=== PATIENT | male | born 1945 | race Caucasian/White ===

== ENCOUNTER → 2017-02-06 | Outpatient (CLI) | payer MEDICARE, OTHER ==
[2017-02-06 09:34] LABS: INR 1.5 (<1.2); Prothrombin Time 14.6 sec (9.0-12.0)
[2017-02-06 09:55] LABS: Total Bilirubin 11.3 mg/dL (0.2-1.3); Total Protein 7.6 g/dL (6.3-8.2)
== END | disposition home or self-care (01) ==
LOC: LABWHC1 08:49
DX: K75.9 Inflammatory liver disease, unspecified (principal)
CPT/HCPCS: 36415; 80053; 85610

== ENCOUNTER 2017-02-09 08:47 | Day surgery (SDC) | payer MEDICARE, OTHER ==
[2017-02-09] MEDS ORDERED: ALPRAZolam 0.25 MG TAB PO ONE (08:52)
[2017-02-09] MEDS ORDERED: HYDROmorphone 1 MG/ML 1 ML SYRINGE IVP PRN (08:52)
[2017-02-09 09:29] LABS: Mean Platelet Volume 7.6
[2017-02-09 09:36] VITALS: TEMP 97.6
[2017-02-09 09:39] LABS: INR 1.5 (<1.2); Prothrombin Time 14.6 sec (9.0-12.0)
--- NOTE | 2017-02-09 11:33 | US ---
EXAMINATION TYPE: US biopsy liver DATE OF EXAM: 02/09/2017 HISTORY: Elevated liver function tests. PROCEDURE: Maximal barrier technique was utilized. After informed consent, the skin overlying a suit able path to the liver was localized using ultrasound, the skin was prepped and draped. Ultrasound w as utilized with sterile technique. Lidocaine was used for local anesthesia. A skin adolfo made with a scalpel. Under direct ultrasound guidance, an 18-gauge needle was advanced into the left lobe of th e liver and core biopsy obtained. Hemostasis was achieved. There was no immediate complication and patient remained in stable condition. Specimen submitted in formalin to Pathology. IMPRESSION: STATUS POST ULTRASOUND GUIDED CORE BIOPSY OF THE LEFT LOBE OF THE LIVER, PATHOLOGY NATALIO Castaneda PERFORMED BY THE UNDERSIGNED.
[2017-02-09 11:51] VITALS: RESP 16
[2017-02-09 13:46] VITALS: BP 123/67
[2017-02-09 14:36] VITALS: PULSE 78
== END 2017-02-09 14:52 | disposition home or self-care (01) ==
LOC: RADPROMAIN 08:47
PROVIDERS: ATTEND Internal Medicine Gastroenterology
DX: K74.60 Unspecified cirrhosis of liver (principal); K76.0 Fatty (change of) liver, not elsewhere classified
CPT/HCPCS: 85049; 85610; 88313; 88307; 96374; 47000; 76942; J1170

== ENCOUNTER 2017-02-12 16:22 | Emergency (ER) | payer MEDICARE, OTHER ==
[2017-02-12] MEDS ORDERED: SODIUM CHLORIDE 0.9% 1,000 ML IV STA (17:44)
[2017-02-12 18:08] LABS: INR 1.5 (<1.2)
[2017-02-12 18:13] LABS: Aty Lym Flag Slight; CH 31.3; CHCM 32.7; HCT 53.5 % (39.0-53.0); HDW 2.18; HGB 17.7 gm/dL (13.0-17.5); MCH 31.8 pg (25.0-35.0); MCHC 33.1 g/dL (31.0-37.0); MCV 96.2 fL (80.0-100.0); Mean Platelet Volume 7.4; RBC 5.56 m/uL (4.30-5.90); RDW 15.2 % (11.5-15.5); WBC 6.8 k/uL (3.8-10.6); WBC (Perox) 6.75
[2017-02-12 18:16] LABS: Add Differential Manual Differential
[2017-02-12 18:18] LABS: Manual Review Performed; Nucleated Red Blood Cells 0 /100 WBC (0-0); Total Cells Counted 100; Total Protein 8.3 g/dL (6.3-8.2)
[2017-02-12 18:21] LABS: Potassium 6.7 mmol/L (3.5-5.1); Total Bilirubin 15.9 mg/dL (0.2-1.3)
--- NOTE | 2017-02-12 18:22 | XR ---
EXAMINATION TYPE: XR chest 2V DATE OF EXAM: 02/12/2017 COMPARISON: 03/23/2013 HISTORY: Liver failure abdominal pain TECHNIQUE: Frontal and lateral views of the chest are obtained. FINDINGS: There is general coarsening of interstitial markings. Heart size is normal. There is no gr oss heart failure. There is no pleural effusion. Thoracic aorta is atheromatous. Bony thorax is intac t. IMPRESSION: Pulmonary interstitial fibrosis. No acute lung disease. No change.
[2017-02-12 18:45] LABS: Amorphous Sediment,Urine Few /hpf; Appearance,Urine Cloudy (Clear); Bacteria,Urine Occasional /hpf; Bilirubin,Urine 2+ (Negative); Glucose,Urine (UA) Negative (Negative); Ketones,Urine Negative (Negative); Leukocyte Esterase,Urine Negative (Negative); Mucus,Urine Rare /hpf; Nitrite,Urine Negative (Negative); Particle Count 15053; Protein,Urine Trace (Negative); RBC,Urine 1 /hpf (0-5); Specific Gravity,Urine 1.015 (1.001-1.035); Squamous Epithelial Cell,Urine 1 /hpf (0-4); UA Billing (MACRO vs. MICRO) MICRO; Urobilinogen,Urine <2.0 mg/dL (<2.0); WBC,Urine 3 /hpf (0-5)
[2017-02-12 18:49] LABS: Troponin I 0.041 ng/mL (0.000-0.034)
--- NOTE | 2017-02-12 19:02 | ED ---
General Adult HPI - General Chief complaint: Recheck/Abnormal Lab/Rx Stated complaint: Liver Failure-Sent by [facility] Time Seen by Provider: 02/12/17 17:55 Source: patient, family, RN notes reviewed Mode of arrival: wheelchair Limitations: no limitations - History of Present Illness Initial comments: Chief complaint history of present illness is a 71-year-old male who 8 weeks ago wasn't feeling well for hantavirus follow-up family physician. Since then the patient has developed liver failure. Ascites. He has had the ascitic fluid aspirated, 3 L last week but since that he has gained 8 pounds. The patient's jaundiced. Decreased appetite difficulty eating or drinking. - Related Data Home Medications Medication Instructions Recorded Confirmed Aspirin 81 mg PO DAILY 01/30/17 02/12/17 Cholecalciferol [Vitamin D3] 1,000 unit PO DAILY 01/30/17 02/12/17 Fish Oil/Dha/Epa [Fish Oil 1,200 1 cap PO DAILY 01/30/17 02/12/17 mg Fish Oil] Glimepiride [Amaryl] 4 mg PO AC-[id number] 01/30/17 02/12/17 Losartan Potassium [Cozaar] 50 mg PO DAILY 01/30/17 02/12/17 Tamsulosin HCl [Flomax] 0.4 mg PO DAILY 01/30/17 02/12/17 metFORMIN HCL [Glucophage] 1,000 mg PO BID 01/30/17 02/12/17 Omeprazole 20 mg PO BID 02/09/17 02/12/17 Spironolactone [Aldactone] 25 mg PO DAILY 02/12/17 02/12/17 Allergies Allergy/AdvReac Type Severity Reaction Status Date / Time No Known Allergies Allergy Verified 02/12/17 18:49 Review of Systems ROS Statement: Those systems with pertinent positive or pertinent negative responses have been documented in the HPI. Review of systems no headache or visual acuity changes denies any chest pain shortness of breath. Due to the ascites stomach this feelspushed up into his chest. Denies abdominal pain. Widening abdominal girth rapidly over the past several weeks. 8 pound weight gain in 1 week after having had 3 L of ascitic fluid removed. The patient did have a liver biopsy approximately 10 days ago but the results are not back yet. 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 It was removed by surgery without follow-up chemo or radiation. Patient has insulin-dependent diabetes. Also has GERD, hyperlipidemia hypertension and BPH. Surgeries the melanoma removal years ago as he only surgeries had. Family history significant for father who had lung cancer mother and breast cancer. Patient denies ALLERGIES. Patient quit smoking in 1976 denies alcohol use. No known ALLERGIES. ROS Other: All systems not noted in ROS Statement are negative. 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 Liver failure. History of Any Multi-Drug Resistant Organisms: None Reported Additional Past Surgical History / Comment(s): melanoma left shoulder, EGD with bx, colonoscopy. Liver biopsy Past Anesthesia/Blood Transfusion Reactions: No Reported Reaction Past Psychological History: No Psychological Hx Reported Smoking Status: Former smoker Past Alcohol Use History: None Reported Past Drug Use History: None Reported - Past Family History Father Family Medical History: Cancer Additional Family Medical History / Comment(s): Father of lung cancer at the age of 68yrs. Mother Family Medical History: No Reported History Additional Family Medical History / Comment(s): Mother was healthy and lived to be 88yrs old. General Exam - General Exam Comments Initial Comments: General: The patient is awake and alert, appears fatigued and complains of being thirsty. Decreased oral intakes no nausea no vomiting. Decreased appetite. Vital signs temperature 97.5 pulse 90 respiratory rate 18 pulse ox 96% room air blood pressure 132/79 Eye: Pupils are equal, round and reactive to light, extra-ocular movements are intact ; there is normal conjunctiva bilaterally. Conjunctiva are jaundiced. Ears, nose, mouth and throat: There are moist mucous membranes and no oral lesions. Anicteric mucous membranes. Neck: The neck is supple, there is no tenderness. Cardiovascular: There is a regular rate and rhythm. No murmur, rub or gallop is appreciated. Respiratory: Lungs are clear to auscultation, respirations are non-labored, breath sounds are equal. No wheezes, stridor, rales, or rhonchi. Gastrointestinal: Patient has significant ascites. Patient had 3 L of ascites removed several days ago since then he has gained 8 pounds. Also had liver biopsy results of which are not back yet. Back: There is no tenderness to palpation in the midline. There is no obvious deformity. No rashes noted. Musculoskeletal: Normal ROM, no tenderness, mild peripheral edema. Neurological: CN II-XII intact, There are no obvious motor or sensory deficits. Coordination appears grossly intact. Speech is normal. Skin: Skin is jaundiced Limitations: no limitations Course Vital Signs 02/12/17 02/12/17 16:24 18:00 Temperature 97.5 F L Pulse Rate 90 97 Respiratory 18 20 Rate Blood Pressure 132/79 122/71 O2 Sat by Pulse 96 95 Oximetry EKG Findings - EKG Comments: EKG Findings:: EKG was done and reviewed at 1924 showing sinus rhythm with occasional APCs. The left anterior fascicular block. No acute ST elevation. Age undetermined inferior infarct.. Heart rate 91 [place] interval is 206 QRS [address] QT [address] Skelton Medical Decision Making - Medical Decision Making Medical decision making the patient's labs show a white count 6.8 hemoglobin 17 hematocrit 53. INR 1.5. Potassium elevated at 6.7 which he is receiving Kayexalate and IV D50 and insulin 10 IV push. His BUN is 51 creatinine 1.5 GFR 46. He is being rehydrated. Total bilirubin significantly elevated at 15.9. Ammonia level is normal at 26. AST ALT and alk phos her AAA elevated. Troponin mildly elevated 0.041. Amylase lipase within normal limits. I discussed the case with Dr. Cortez, the patient's special agent [employer]. He wants the patient transferred [facility] for evaluation for acute nonalcoholic fatty liver cirrhosis. I spoke with Dr. Fisher at [facility] to accept the patient for transfer to Gen. admission floor. - Lab Data Result diagrams: 02/12/17 17:50 02/12/17 17:50 Lab Results 02/12/17 02/12/17 02/12/17 Range/Units 17:50 17:50 17:50 WBC 6.8 (3.8-10.6) k/uL RBC 5.56 (4.30-5.90) m/uL Hgb 17.7 H (13.0-17.5) gm/dL Hct 53.5 H (39.0-53.0) % MCV 96.2 (80.0-100.0) fL MCH 31.8 (25.0-35.0) pg MCHC 33.1 (31.0-37.0) g/dL RDW 15.2 (11.5-15.5) % Plt Count 242 (150-450) k/uL Neutrophils % (Manual) 83 % Lymphocytes % (Manual) 12 % Monocytes % (Manual) 3 % Eosinophils % (Manual) 1 % Basophils % (Manual) 1 % Neutrophils # (Manual) 5.64 (1.3-7.7) k/uL Lymphocytes # (Manual) 0.82 L (1.0-4.8) k/uL Monocytes # (Manual) 0.20 (0-1.0) k/uL Eosinophils # (Manual) 0.07 (0-0.7) k/uL Basophils # (Manual) 0.07 (0-0.2) k/uL Nucleated RBCs 0 (0-0) /100 WBC Manual Slide Review Performed PT (9.0-12.0) sec INR (<1.2) Sodium 133 L (137-145) mmol/L Potassium 6.7 H* (3.5-5.1) mmol/L Chloride 100 (98-107) mmol/L Carbon Dioxide 21 L (22-30) mmol/L Anion Gap 12 mmol/L BUN 51 H (9-20) mg/dL Creatinine 1.50 H (0.66-1.25) mg/dL Est GFR (MDRD) Af Amer 56 (>60 ml/min/1.73 sqM) Est GFR (MDRD) Non-Af 46 (>60 ml/min/1.73 sqM) Glucose 135 H (74-99) mg/dL Plasma Lactic Acid Harshad (0.7-2.0) mmol/L Calcium 10.0 (8.4-10.2) mg/dL Total Bilirubin 15.9 H* (0.2-1.3) mg/dL AST 383 H (17-59) U/L ALT 156 H (21-72) U/L Alkaline Phosphatase 555 H (38-126) U/L Ammonia (<30) umol/L Total Creatine Kinase 88 (55-170) U/L CK-MB (CK-2) 1.0 (0.0-2.4) ng/mL CK-MB (CK-2) Rel Index 1.1 Troponin I 0.041 H* (0.000-0.034) ng/mL Total Protein 8.3 H (6.3-8.2) g/dL Albumin 3.8 (3.5-5.0) g/dL Amylase 75 (30-110) U/L Lipase 282 (23-300) U/L Urine Color Urine Appearance (Clear) Urine pH (5.0-8.0) Ur Specific [place] (1.001-1.035) Urine Protein (Negative) Urine Glucose (UA) (Negative) Urine Ketones (Negative) Urine Blood (Negative) Urine Nitrite (Negative) Urine Bilirubin (Negative) Urine Urobilinogen (<2.0) mg/dL Ur Leukocyte Esterase (Negative) Urine RBC (0-5) /hpf Urine WBC (0-5) /hpf Ur Squamous Epith Cells (0-4) /hpf Amorphous Sediment (None) /hpf Urine Bacteria (None) /hpf Hyaline Casts (0-2) /lpf Urine Mucus (None) /hpf 02/12/17 02/12/17 02/12/17 Range/Units 17:50 17:50 17:50 WBC (3.8-10.6) k/uL RBC (4.30-5.90) m/uL Hgb (13.0-17.5) gm/dL Hct (39.0-53.0) % MCV (80.0-100.0) fL MCH (25.0-35.0) pg MCHC (31.0-37.0) g/dL RDW (11.5-15.5) % Plt Count (150-450) k/uL Neutrophils % (Manual) % Lymphocytes % (Manual) % Monocytes % (Manual) % Eosinophils % (Manual) % Basophils % (Manual) % Neutrophils # (Manual) (1.3-7.7) k/uL Lymphocytes # (Manual) (1.0-4.8) k/uL Monocytes # (Manual) (0-1.0) k/uL Eosinophils # (Manual) (0-0.7) k/uL Basophils # (Manual) (0-0.2) k/uL Nucleated RBCs (0-0) /100 WBC Manual Slide Review PT 15.0 H (9.0-12.0) sec INR 1.5 H (<1.2) Sodium (137-145) mmol/L Potassium (3.5-5.1) mmol/L Chloride (98-107) mmol/L Carbon Dioxide (22-30) mmol/L Anion Gap mmol/L BUN (9-20) mg/dL Creatinine (0.66-1.25) mg/dL Est GFR (MDRD) Af Amer (>60 ml/min/1.73 sqM) Est GFR (MDRD) Non-Af (>60 ml/min/1.73 sqM) Glucose (74-99) mg/dL Plasma Lactic Acid Harshad 2.0 (0.7-2.0) mmol/L Calcium (8.4-10.2) mg/dL Total Bilirubin (0.2-1.3) mg/dL AST (17-59) U/L ALT (21-72) U/L Alkaline Phosphatase (38-126) U/L Ammonia 26 (<30) umol/L Total Creatine Kinase (55-170) U/L CK-MB (CK-2) (0.0-2.4) ng/mL CK-MB (CK-2) Rel Index Troponin I (0.000-0.034) ng/mL Total Protein (6.3-8.2) g/dL Albumin (3.5-5.0) g/dL Amylase (30-110) U/L Lipase (23-300) U/L Urine Color Urine Appearance (Clear) Urine pH (5.0-8.0) Ur Specific [place] (1.001-1.035) Urine Protein (Negative) Urine Glucose (UA) (Negative) Urine Ketones (Negative) Urine Blood (Negative) Urine Nitrite (Negative) Urine Bilirubin (Negative) Urine Urobilinogen (<2.0) mg/dL Ur Leukocyte Esterase (Negative) Urine RBC (0-5) /hpf Urine WBC (0-5) /hpf Ur Squamous Epith Cells (0-4) /hpf Amorphous Sediment (None) /hpf Urine Bacteria (None) /hpf Hyaline Casts (0-2) /lpf Urine Mucus (None) /hpf 02/12/17 Range/Units 18:15 WBC (3.8-10.6) k/uL RBC (4.30-5.90) m/uL Hgb (13.0-17.5) gm/dL Hct (39.0-53.0) % MCV (80.0-100.0) fL MCH (25.0-35.0) pg MCHC (31.0-37.0) g/dL RDW (11.5-15.5) % Plt Count (150-450) k/uL Neutrophils % (Manual) % Lymphocytes % (Manual) % Monocytes % (Manual) % Eosinophils % (Manual) % Basophils % (Manual) % Neutrophils # (Manual) (1.3-7.7) k/uL Lymphocytes # (Manual) (1.0-4.8) k/uL Monocytes # (Manual) (0-1.0) k/uL Eosinophils # (Manual) (0-0.7) k/uL Basophils # (Manual) (0-0.2) k/uL Nucleated RBCs (0-0) /100 WBC Manual Slide Review PT (9.0-12.0) sec INR (<1.2) Sodium (137-145) mmol/L Potassium (3.5-5.1) mmol/L Chloride (98-107) mmol/L Carbon Dioxide (22-30) mmol/L Anion Gap mmol/L BUN (9-20) mg/dL Creatinine (0.66-1.25) mg/dL Est GFR (MDRD) Af Amer (>60 ml/min/1.73 sqM) Est GFR (MDRD) Non-Af (>60 ml/min/1.73 sqM) Glucose (74-99) mg/dL Plasma Lactic Acid Harshad (0.7-2.0) mmol/L Calcium (8.4-10.2) mg/dL Total Bilirubin (0.2-1.3) mg/dL AST (17-59) U/L ALT (21-72) U/L Alkaline Phosphatase (38-126) U/L Ammonia (<30) umol/L Total Creatine Kinase (55-170) U/L CK-MB (CK-2) (0.0-2.4) ng/mL CK-MB (CK-2) Rel Index Troponin I (0.000-0.034) ng/mL Total Protein (6.3-8.2) g/dL Albumin (3.5-5.0) g/dL Amylase (30-110) U/L Lipase (23-300) U/L Urine Color Dark Brown Urine Appearance Cloudy (Clear) Urine pH 5.0 (5.0-8.0) Ur Specific [place] 1.015 (1.001-1.035) Urine Protein Trace H (Negative) Urine Glucose (UA) Negative (Negative) Urine Ketones Negative (Negative) Urine Blood Negative (Negative) Urine Nitrite Negative (Negative) Urine Bilirubin 2+ H (Negative) Urine Urobilinogen <2.0 (<2.0) mg/dL Ur Leukocyte Esterase Negative (Negative) Urine RBC 1 (0-5) /hpf Urine WBC 3 (0-5) /hpf Ur Squamous Epith Cells 1 (0-4) /hpf Amorphous Sediment Few H (None) /hpf Urine Bacteria Occasional H (None) /hpf Hyaline Casts 124 H (0-2) /lpf Urine Mucus Rare H (None) /hpf Disposition Clinical Impression: Cirrhosis of liver not due to alcohol, Hyperkalemia Disposition: OTHER INSTITUTION NOT DEFINED Condition: Serious Referrals: Zan Mai DO [Primary Care Provider] - 1-2 days - Out of Hospital Transfer - Req. Specs Out of Hospital Transfer - Requested Specifics: Other Non-Acute (Transfer to [facility] main general medical bed)
[2017-02-12] MEDS ORDERED: SODIUM POLYSTYRENE SULFONATE 15 GM/60 ML BOTTLE PO STA (19:54)
[2017-02-12] MEDS ORDERED: INSULIN REGULAR 100 UNIT/ML VIAL IV ONE (19:55)
[2017-02-12] MEDS ORDERED: DEXTROSE 50%-WATER 50 ML SYRINGE IVP STA (19:55)
[2017-02-12 21:30] VITALS: BP 160/72; PULSE 98; RESP 18; TEMP 97.9
== END 2017-02-12 21:35 | disposition other institution (70) ==
LOC: EC 16:22
DX: K74.60 Unspecified cirrhosis of liver (principal); E87.5 Hyperkalemia; E11.9 Type 2 diabetes mellitus without complications; I10 Essential (primary) hypertension; K21.9 Gastro-esophageal reflux disease without esophagitis; N40.0 Benign prostatic hyperplasia without lower urinary tract symptoms; Z85.820 Personal history of malignant melanoma of skin; Z87.891 Personal history of nicotine dependence; Z79.82 Long term (current) use of aspirin; Z79.84 Long term (current) use of oral hypoglycemic drugs; Z79.899 Other long term (current) drug therapy
CPT/HCPCS: 36415; 71020; 80053; 81001; 82140; 82150; 82550; 82553; 83605; 83690; 84484; 85025; 85610; 87086; 93005; 96361; 96374; 99285

== ENCOUNTER 2017-02-21 11:40 | Inpatient (IN) | payer MEDICARE, OTHER ==
[2017-02-21] MEDS ORDERED: SODIUM CHLORIDE 0.9% 1,000 ML IV STA (12:15)
--- NOTE | 2017-02-21 12:37 | ED ---
General Adult HPI - General Chief complaint: Weakness Stated complaint: Hx Ca jaundice, weakness Time Seen by Provider: 02/21/17 11:57 Source: patient, RN notes reviewed Mode of arrival: wheelchair Limitations: no limitations - History of Present Illness Initial comments: 71-year-old male presents to the emergency department with a chief complaint of weakness. Patient was recently diagnosed with liver cancer. He states is not currently in his chemo treatment sees. At [facility] tomorrow for a appointment to see the progressive plan. He is here because he continues to have weakness. He states he could have a hard time getting up semi-going to the bathroom he is just having a difficult time. Patient denies any fever chills with this. Patient denies any chest pain or shortness of breath. Patient states that his abdomen has been drained twice since she's been diagnosed and it does get old. Patient states he has a pressure there in the abdomen but no other symptoms. Patient and patient's family states they are concerned because of how weak he has a mechanical get around well at home so they thought they should be seen. Patient denies any recent fever, chills, shortness of breath, chest pain, back pain, abdominal pain, nausea vomiting, numbness or tingling, dysuria or hematuria, constipation or diarrhea, headaches or visual changes, or any other current symptoms. - Related Data Home Medications Medication Instructions Recorded Confirmed Aspirin 81 mg PO DAILY 01/30/17 02/21/17 Glimepiride [Amaryl] 4 mg PO AC-BRKFST 01/30/17 02/21/17 Losartan Potassium [Cozaar] 50 mg PO DAILY 01/30/17 02/21/17 Tamsulosin HCl [Flomax] 0.4 mg PO BID 01/30/17 02/21/17 metFORMIN HCL [Glucophage] 1,000 mg PO BID 01/30/17 02/21/17 Omeprazole 20 mg PO AC-BID 02/09/17 02/21/17 Spironolactone [Aldactone] 25 mg PO DAILY 02/12/17 02/21/17 Allergies Allergy/AdvReac Type Severity Reaction Status Date / Time No Known Allergies Allergy Verified 02/21/17 12:46 Review of Systems ROS Statement: Those systems with pertinent positive or pertinent negative responses have been documented in the HPI. ROS Other: All systems not noted in ROS Statement are negative. 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 Liver failure, Liver cancer History of Any Multi-Drug Resistant Organisms: None Reported Additional Past Surgical History / Comment(s): melanoma left shoulder, EGD with bx, colonoscopy. Liver biopsy Past Anesthesia/Blood Transfusion Reactions: No Reported Reaction Past Psychological History: No Psychological Hx Reported Smoking Status: Former smoker Past Alcohol Use History: None Reported Past Drug Use History: None Reported - Past Family History Father Family Medical History: Cancer Additional Family Medical History / Comment(s): Father of lung cancer at the age of 68yrs. Mother Family Medical History: No Reported History Additional Family Medical History / Comment(s): Mother was healthy and lived to be 88yrs old. General Exam - General Exam Comments Initial Comments: General: The patient is awake and alert, in no distress, and does not appear acutely ill. Jaundice. Eye: Pupils are equal, round and reactive to light, extra-ocular movements are intact; there is normal conjunctiva bilaterally. sclera icterus. Ears, nose, mouth and throat: There are moist mucous membranes and no oral lesions. Neck: The neck is supple, there is no tenderness. Cardiovascular: There is a regular rate and rhythm. No murmur, rub or gallop is appreciated. Respiratory: Lungs are clear to auscultation, respirations are non-labored, breath sounds are equal. No wheezes, stridor, rales, or rhonchi. Gastrointestinal: distended, ascites, non-tender abdomen without masses or organomegaly noted. There is no rebound or guarding present. No CVA tenderness. Bowel sounds are unremarkable. Back: There is no tenderness to palpation in the midline. There is no obvious deformity. No rashes noted. Musculoskeletal: Normal ROM, no tenderness, There is no pedal edema. There is no calf tenderness or swelling. Sensation intact. Pulses equal bilaterally 2+. Neurological: CN II-XII intact, There are no obvious motor or sensory deficits. Coordination appears grossly intact. Speech is normal. Skin: Skin is warm and dry and no rashes or lesions are noted. Psychiatric: Cooperative, appropriate mood & affect, normal judgment. Limitations: no limitations Course Vital Signs 02/21/17 02/21/17 02/21/17 11:49 13:07 13:17 Temperature 96.9 F L 97.0 F L Pulse Rate 70 71 Respiratory 18 20 Rate Blood Pressure 99/51 104/71 O2 Sat by Pulse 99 97 Oximetry Medical Decision Making - Medical Decision Making 71-year-old male presents to the emergency department with a chief complaint of weakness with a history of liver cancer. This time lab records reviewed. Dr. Zan Mai was contacted and I had an extensive conversation with the family. At this time they are requesting comfort care. The patient is a no code after thorough discussing the patient's wants. This time he does not want to seek cancer treatment. At this time we will admit the patient. He does appear to be in acute kidney failure with a creatinine of 6 as well as his potassium is 7.1 which we did treat. His ammonia is 130 we will give lactulose. We will hydrate the patient due to his acute kidney injury and dehydration. Pain medication and anxiety medications will be ordered for the patient. Hospitalist consult will be placed. The patient and family are in agreement with this plan and all questions have been answered. - Lab Data Result diagrams: 02/21/17 12:30 02/21/17 13:28 Lab Results 02/21/17 02/21/17 02/21/17 Range/Units 12:30 12:30 12:30 WBC 10.0 (3.8-10.6) k/uL RBC 5.43 (4.30-5.90) m/uL Hgb 17.2 (13.0-17.5) gm/dL Hct 53.0 (39.0-53.0) % MCV 97.6 (80.0-100.0) fL MCH 31.7 (25.0-35.0) pg MCHC 32.5 (31.0-37.0) g/dL RDW 16.7 H (11.5-15.5) % Plt Count 272 (150-450) k/uL Neutrophils % (Manual) 89 % Lymphocytes % (Manual) 4 % Monocytes % (Manual) 7 % Neutrophils # (Manual) 8.90 H (1.3-7.7) k/uL Lymphocytes # (Manual) 0.40 L (1.0-4.8) k/uL Monocytes # (Manual) 0.70 (0-1.0) k/uL Nucleated RBCs 0 (0-0) /100 WBC Manual Slide Review Performed Poikilocytosis (manual Present Anisocytosis Slight Macrocytosis Slight Target Cells Present PT 18.8 H (9.0-12.0) sec INR 2.0 H (<1.2) APTT 33.1 H (22.0-30.0) sec Sodium 136 L (137-145) mmol/L Potassium 6.6 H* (3.5-5.1) mmol/L Chloride 103 (98-107) mmol/L Carbon Dioxide 7 L* (22-30) mmol/L Anion Gap 26 mmol/L BUN 68 H (9-20) mg/dL Creatinine 6.15 H* (0.66-1.25) mg/dL Est GFR (MDRD) Af Amer 11 (>60 ml/min/1.73 sqM) Est GFR (MDRD) Non-Af 9 (>60 ml/min/1.73 sqM) Glucose 67 L (74-99) mg/dL Plasma Lactic Acid Harshad (0.7-2.0) mmol/L Calcium 9.5 (8.4-10.2) mg/dL Phosphorus 9.1 H* (2.5-4.5) mg/dL Magnesium 1.7 (1.6-2.3) mg/dL Total Bilirubin 21.3 H* (0.2-1.3) mg/dL AST 410 H (17-59) U/L ALT 211 H (21-72) U/L Alkaline Phosphatase 380 H (38-126) U/L Ammonia (<30) umol/L Total Creatine Kinase (55-170) U/L CK-MB (CK-2) (0.0-2.4) ng/mL CK-MB (CK-2) Rel Index Troponin I (0.000-0.034) ng/mL Total Protein 7.7 (6.3-8.2) g/dL Albumin 3.4 L (3.5-5.0) g/dL Amylase 269 H (30-110) U/L Lipase 1071 H (23-300) U/L Blood Type Blood Type Recheck Antibody Screen Spec Expiration Date 02/21/17 02/21/17 02/21/17 Range/Units 12:30 13:28 13:28 WBC (3.8-10.6) k/uL RBC (4.30-5.90) m/uL Hgb (13.0-17.5) gm/dL Hct (39.0-53.0) % MCV (80.0-100.0) fL MCH (25.0-35.0) pg MCHC (31.0-37.0) g/dL RDW (11.5-15.5) % Plt Count (150-450) k/uL Neutrophils % (Manual) % Lymphocytes % (Manual) % Monocytes % (Manual) % Neutrophils # (Manual) (1.3-7.7) k/uL Lymphocytes # (Manual) (1.0-4.8) k/uL Monocytes # (Manual) (0-1.0) k/uL Nucleated RBCs (0-0) /100 WBC Manual Slide Review Poikilocytosis (manual Anisocytosis Macrocytosis Target Cells PT (9.0-12.0) sec INR (<1.2) APTT (22.0-30.0) sec Sodium (137-145) mmol/L Potassium (3.5-5.1) mmol/L Chloride (98-107) mmol/L Carbon Dioxide (22-30) mmol/L Anion Gap mmol/L BUN (9-20) mg/dL Creatinine (0.66-1.25) mg/dL Est GFR (MDRD) Af Amer (>60 ml/min/1.73 sqM) Est GFR (MDRD) Non-Af (>60 ml/min/1.73 sqM) Glucose (74-99) mg/dL Plasma Lactic Acid Harshad 11.6 H* (0.7-2.0) mmol/L Calcium (8.4-10.2) mg/dL Phosphorus (2.5-4.5) mg/dL Magnesium (1.6-2.3) mg/dL Total Bilirubin (0.2-1.3) mg/dL AST (17-59) U/L ALT (21-72) U/L Alkaline Phosphatase (38-126) U/L Ammonia 130 H (<30) umol/L Total Creatine Kinase 60 (55-170) U/L CK-MB (CK-2) 1.7 (0.0-2.4) ng/mL CK-MB (CK-2) Rel Index 2.8 Troponin I 0.031 (0.000-0.034) ng/mL Total Protein (6.3-8.2) g/dL Albumin (3.5-5.0) g/dL Amylase (30-110) U/L Lipase (23-300) U/L Blood Type B Positive Blood Type Recheck CABO Indicated Antibody Screen NEGATIVE Spec Expiration Date 02/24/2017 - 232702/21/17 Range/Units 13:28 WBC (3.8-10.6) k/uL RBC (4.30-5.90) m/uL Hgb (13.0-17.5) gm/dL Hct (39.0-53.0) % MCV (80.0-100.0) fL MCH (25.0-35.0) pg MCHC (31.0-37.0) g/dL RDW (11.5-15.5) % Plt Count (150-450) k/uL Neutrophils % (Manual) % Lymphocytes % (Manual) % Monocytes % (Manual) % Neutrophils # (Manual) (1.3-7.7) k/uL Lymphocytes # (Manual) (1.0-4.8) k/uL Monocytes # (Manual) (0-1.0) k/uL Nucleated RBCs (0-0) /100 WBC Manual Slide Review Poikilocytosis (manual Anisocytosis Macrocytosis Target Cells PT (9.0-12.0) sec INR (<1.2) APTT (22.0-30.0) sec Sodium (137-145) mmol/L Potassium 7.1 H* (3.5-5.1) mmol/L Chloride (98-107) mmol/L Carbon Dioxide (22-30) mmol/L Anion Gap mmol/L BUN (9-20) mg/dL Creatinine (0.66-1.25) mg/dL Est GFR (MDRD) Af Amer (>60 ml/min/1.73 sqM) Est GFR (MDRD) Non-Af (>60 ml/min/1.73 sqM) Glucose (74-99) mg/dL Plasma Lactic Acid Harshad (0.7-2.0) mmol/L Calcium (8.4-10.2) mg/dL Phosphorus (2.5-4.5) mg/dL Magnesium (1.6-2.3) mg/dL Total Bilirubin (0.2-1.3) mg/dL AST (17-59) U/L ALT (21-72) U/L Alkaline Phosphatase (38-126) U/L Ammonia (<30) umol/L Total Creatine Kinase (55-170) U/L CK-MB (CK-2) (0.0-2.4) ng/mL CK-MB (CK-2) Rel Index Troponin I (0.000-0.034) ng/mL Total Protein (6.3-8.2) g/dL Albumin (3.5-5.0) g/dL Amylase (30-110) U/L Lipase (23-300) U/L Blood Type Blood Type Recheck Antibody Screen Spec Expiration Date Disposition Clinical Impression: Jaundice, Acute kidney injury, Liver cancer, Increased ammonia level, Liver failure, Hyperkalemia Disposition: ADMITTED IP TO THIS [facility] Condition: Critical Referrals: Zan Mai DO [Primary Care Provider] - 1-2 days Decision Date: 02/21/17 Decision Time: 14:45
[2017-02-21 12:55] LABS: Anisocytosis Slight; Aty Lym Flag Marked; CH 30.1; HDW 2.25; HGB 17.2 gm/dL (13.0-17.5); MCH 31.7 pg (25.0-35.0); MCHC 32.5 g/dL (31.0-37.0); MCV 97.6 fL (80.0-100.0); Macrocytosis Slight; Mean Platelet Volume 7.7; RBC 5.43 m/uL (4.30-5.90); RDW 16.7 % (11.5-15.5); WBC (Perox) 11.31
--- NOTE | 2017-02-21 13:01 | XR ---
EXAMINATION TYPE: XR abdomen 2V DATE OF EXAM: 02/21/2017 COMPARISON: 01/30/2017 HISTORY: Pain TECHNIQUE: One view abdominal series FINDINGS: The osseous structures are intact. The bowel gas pattern is nonspecific. Scattered air-fluid levels are noted. Hypertrophic change of the spine and arthropathy of the hips. IMPRESSION: 1. Nonspecific abdomen. Scattered air-fluid levels on the upright view. Enteritis or ileus in the di fferential. Partial obstruction not excluded.
[2017-02-21 13:03] LABS: Calcium 9.5 mg/dL (8.4-10.2); Magnesium 1.7 mg/dL (1.6-2.3); Total Protein 7.7 g/dL (6.3-8.2)
--- NOTE | 2017-02-21 13:03 | XR ---
EXAMINATION TYPE: XR chest 2V DATE OF EXAM: 02/21/2017 COMPARISON: 02/12/2017 TECHNIQUE: PA and lateral views submitted. HISTORY: Pain FINDINGS: Atherosclerotic change aorta. Large calcifications left paratracheal region appears be related to lar ge calcified substernal thyroid nodule previously reported on CT scan of 03/23/2013. No pleural effusion or pneumothorax. No focal pneumonia. Hypertrophic change of the spine. Hyperinfla tion suggests COPD. IMPRESSION: 1. Correlate for mild COPD 2. Probable calcified left thyroid nodule in a substernal location
[2017-02-21 13:06] LABS: Potassium 6.6 mmol/L (3.5-5.1)
[2017-02-21 13:07] LABS: Phosphorous 9.1 mg/dL (2.5-4.5); Total Bilirubin 21.3 mg/dL (0.2-1.3)
[2017-02-21 13:18] VITALS: TEMP 97
[2017-02-21 13:20] LABS: Add Differential Manual Differential
[2017-02-21 13:22] LABS: Manual Review Performed; Nucleated Red Blood Cells 0 /100 WBC (0-0); Total Cells Counted 100
[2017-02-21 13:23] LABS: Target Cells Present
[2017-02-21 13:30] LABS: Partial Thromboplastin Time 33.1 sec (22.0-30.0); Prothrombin Time 18.8 sec (9.0-12.0)
[2017-02-21 13:34] LABS: Creatine Kinase MB 1.7 ng/mL (0.0-2.4); Troponin I 0.031 ng/mL (0.000-0.034)
[2017-02-21] MEDS ORDERED: INSULIN REGULAR 100 UNIT/ML VIAL IV ONE (14:14)
[2017-02-21] MEDS ORDERED: SODIUM POLYSTYRENE SULFONATE 15 GM/60 ML BOTTLE PO STA (14:15)
[2017-02-21] MEDS ORDERED: DEXTROSE 50%-WATER 50 ML SYRINGE IVP STA (14:15)
[2017-02-21] MEDS ORDERED: CALCIUM GLUCONATE 1,000 MG in SODIUM CHLORIDE 0.9% 100 ML IVPB ONE (14:30)
[2017-02-21] MEDS ORDERED: NALOXONE 0.4 MG/ML 1 ML VIAL IV PRN (14:46)
[2017-02-21] MEDS ORDERED: LORazepam 2 MG/ML SYRINGE IV PRN (14:46)
[2017-02-21] MEDS ORDERED: IBUPROFEN 400 MG TAB PO PRN (14:46)
[2017-02-21] MEDS ORDERED: ONDANSETRON 4 MG/2 ML VIAL IVP PRN (14:46)
[2017-02-21] MEDS ORDERED: SODIUM CHLORIDE 0.9% 1,000 ML IV SCH (15:00)
[2017-02-21 15:17] VITALS: BP 105/51; PULSE 71; RESP 18
[2017-02-21] MEDS ORDERED: PANTOPRAZOLE 40 MG TABLET PO SCH (17:30)
[2017-02-21 18:02] LABS: Glucose,Whole Blood 45 mg/dL (75-99)
[2017-02-21 18:22] LABS: Glucose,Whole Blood 45 mg/dL (75-99)
[2017-02-21 18:59] LABS: Glucose,Whole Blood 52 mg/dL (75-99)
[2017-02-21] MEDS ORDERED: ACETAMINOPHEN TAB 325 MG TAB PO PRN (19:57)
[2017-02-21] MEDS ORDERED: ARTIFICIAL TEARS-HYPROMELLOSE DROPS 15 ML BTL BOTH EYES PRN (19:57)
[2017-02-21] MEDS ORDERED: SCOPOLAMINE 1.5MG/72HR PATCH TRANSDERM PRN (19:57)
[2017-02-21] MEDS ORDERED: HYDROCORTISONE 1% CREAM 30 GM TUBE TOPICAL PRN (19:57)
[2017-02-21] MEDS ORDERED: ATROPINE OPHTH SOLN 1% 5ML BTL SUBLINGUAL PRN (19:57)
[2017-02-21] MEDS ORDERED: ZOLPIDEM 5 MG TAB PO PRN (20:12)
[2017-02-21] MEDS ORDERED: DEXTROSE 5%-0.45% NACL 1,000 ML IV ONE (20:12)
[2017-02-21] MEDS ORDERED: TAMSULOSIN 0.4 MG CAP.ER.24H PO SCH (21:00)
[2017-02-21] MEDS ORDERED: metFORMIN 500 MG TAB PO SCH (21:00)
[2017-02-21] MEDS: HYDROmorphone 1 MG/ML 1 ML SYRINGE IV PRN (21:06)
[2017-02-21] MEDS: LORazepam 2 MG/ML SYRINGE IV PRN (21:10)
[2017-02-22] MEDS: LORazepam 2 MG/ML SYRINGE IV PRN ×3 (05:43→14:46)
[2017-02-22] MEDS: HYDROmorphone 1 MG/ML 1 ML SYRINGE IV PRN (05:49)
[2017-02-22] MEDS ORDERED: GLIMEPIRIDE 4 MG TAB PO SCH (07:30)
[2017-02-22] MEDS ORDERED: SPIRONOLACTONE 25 MG TAB PO SCH (09:00)
[2017-02-22] MEDS ORDERED: LOSARTAN 50 MG TAB PO SCH (09:00)
--- NOTE | 2017-02-22 09:31 | P.CONS ---
History of Present Illness - Reason for Consult Consult date: 02/22/17 Liver failure Requesting physician: Zan Mai - History of Present Illness 71-year-old male recently diagnosed at [facility] over the last few weeks with hepatocellular carcinoma. History provided by family. According to the family patient was not a candidate for liver transplant. Chemotherapy was discussed with patient decided to not pursue. Patient was alert and prior to admission and requested to be brought to the hospital for comfort measures. Presently he is somnolent and obtunded. Not arousable. White count 10. Hemoglobin 17. Platelet 272. INR 2.0. Lactic acid 11.5. Potassium 7.1. Glucose 52. Total bilirubin 21.3. AST 410. ALT 211. Alkaline phosphatase 380. Ammonia 130. Lipase 1071. Amylase 269. Sodium 136. BUN 68. Creatinine 6.1. Review of Systems Provided by family Constitutional: Denies fever, chills, sweats, weight gain, or loss. HEENT: Negative for migraines, blurred vision or loss, earaches, drainage, tinnitus, oral mucosal lesions, dysphagia, or odynophagia. Cardiac: Hypertension. Hypercholesterolemia. Negative for chest pain, arrhythmias, or palpitation. Respiratory: Negative for shortness of breath, hemoptysis, cough, or sputum production. Gastrointestinal: See HPI for pertinent findings. Genitourinary: Negative for hematuria, urgency, frequency, polyuria, dysuria, or penile discharge. Musculoskeletal: Negative for muscle aches, swelling, arthritis, and arthralgias. Neurologic: Negative for stroke or TIA. Endocrine: Diabetes. Negative for thyroid problems. Skin: Melanoma. Negative for rash or itching. 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 Liver failure, Liver cancer, jaundice History of Any Multi-Drug Resistant Organisms: None Reported Additional Past Surgical History / Comment(s): melanoma left shoulder, EGD with bx, colonoscopy. Liver biopsy, paracentesis 02/01/17 Past Anesthesia/Blood Transfusion Reactions: No Reported Reaction Smoking Status: Former smoker - Past Family History Father Family Medical History: Cancer Additional Family Medical History / Comment(s): Father of lung cancer at the age of 68yrs. Mother Family Medical History: No Reported History Additional Family Medical History / Comment(s): Mother was healthy and lived to be 88yrs old. Medications and Allergies Home Medications Medication Instructions Recorded Confirmed Type Aspirin 81 mg PO DAILY 01/30/17 02/21/17 History Glimepiride [Amaryl] 4 mg PO AC-BRKFST 01/30/17 02/21/17 History Losartan Potassium [Cozaar] 50 mg PO DAILY 01/30/17 02/21/17 History Tamsulosin HCl [Flomax] 0.4 mg PO BID 01/30/17 02/21/17 History metFORMIN HCL [Glucophage] 1,000 mg PO BID 01/30/17 02/21/17 History Omeprazole 20 mg PO AC-BID 02/09/17 02/21/17 History Spironolactone [Aldactone] 25 mg PO DAILY 02/12/17 02/21/17 History Allergies Allergy/AdvReac Type Severity Reaction Status Date / Time No Known Allergies Allergy Verified 02/21/17 12:46 Physical Exam Vitals: Vital Signs Temp Pulse Resp BP Pulse Ox 02/22/17 00:00 18 02/21/17 16:00 18 02/21/17 15:13 71 18 105/51 97 02/21/17 15:09 97.0 F L 711 H 8 L 82/43 99 02/21/17 13:17 97.0 F L 02/21/17 13:07 71 20 104/71 97 02/21/17 11:49 96.9 F L 70 18 99/51 99 Intake and Output 02/21/17 02/22/17 02/22/17 22:59 06:59 14:59 Intake Total 150 250 Balance 150 250 Intake: Intake, IV Titration 150 250 Amount Dextrose 5%-0.45% NaCl 1, 150 250 000 ml @ 50 mls/hr IV . Q20H ONE Rx#:[id number] Other: Voiding Method Toilet Toilet # Voids 3 3 # Bowel Movements 3 2 Weight 97.522 kg General appearance: The patient is somnolent snoring unarousable visibly jaundice HET: Head is normocephalic and atraumatic. Pupils are equal and sluggish. Sclerae icterus Oropharynx is clear without lesions. Neck: Supple without lymphadenopathy. Trachea midline. Heart: S1 S2. Regular rate and rhythm. Lungs: No crackles or wheezes are heard. Abdomen: Soft, distended with ascites with hypoactive bowel sounds. No peritoneal signs. No palpable organomegaly or masses. Extremities: Normal skin color and turgor. No cyanosis, rash, ulceration, clubbing, or edema. Radial and pedal pulses are 2/4 bilaterally. Neurological: Obtunded. Results CBC & Chem 7: 02/21/17 12:30 02/21/17 13:28 Labs: Abnormal Lab Results - Last 24 Hours (Table) 02/21/17 02/21/17 02/21/17 Range/Units 12:30 12:30 12:30 RDW 16.7 H (11.5-15.5) % Neutrophils # (Manual) 8.90 H (1.3-7.7) k/uL Lymphocytes # (Manual) 0.40 L (1.0-4.8) k/uL PT 18.8 H (9.0-12.0) sec INR 2.0 H (<1.2) APTT 33.1 H (22.0-30.0) sec Sodium 136 L (137-145) mmol/L Potassium 6.6 H* (3.5-5.1) mmol/L Carbon Dioxide 7 L* (22-30) mmol/L BUN 68 H (9-20) mg/dL Creatinine 6.15 H* (0.66-1.25) mg/dL Glucose 67 L (74-99) mg/dL POC Glucose (mg/dL) (75-99) mg/dL Plasma Lactic Acid Harshad (0.7-2.0) mmol/L Phosphorus 9.1 H* (2.5-4.5) mg/dL Total Bilirubin 21.3 H* (0.2-1.3) mg/dL AST 410 H (17-59) U/L ALT 211 H (21-72) U/L Alkaline Phosphatase 380 H (38-126) U/L Ammonia (<30) umol/L Albumin 3.4 L (3.5-5.0) g/dL Amylase 269 H (30-110) U/L Lipase 1071 H (23-300) U/L 02/21/17 02/21/17 02/21/17 Range/Units 13:28 13:28 17:25 RDW (11.5-15.5) % Neutrophils # (Manual) (1.3-7.7) k/uL Lymphocytes # (Manual) (1.0-4.8) k/uL PT (9.0-12.0) sec INR (<1.2) APTT (22.0-30.0) sec Sodium (137-145) mmol/L Potassium 7.1 H* (3.5-5.1) mmol/L Carbon Dioxide (22-30) mmol/L BUN (9-20) mg/dL Creatinine (0.66-1.25) mg/dL Glucose (74-99) mg/dL POC Glucose (mg/dL) (75-99) mg/dL Plasma Lactic Acid Harshad 11.6 H* 11.5 H* (0.7-2.0) mmol/L Phosphorus (2.5-4.5) mg/dL Total Bilirubin (0.2-1.3) mg/dL AST (17-59) U/L ALT (21-72) U/L Alkaline Phosphatase (38-126) U/L Ammonia 130 H (<30) umol/L Albumin (3.5-5.0) g/dL Amylase (30-110) U/L Lipase (23-300) U/L 02/21/17 02/21/17 02/21/17 Range/Units 18:01 18:20 18:56 RDW (11.5-15.5) % Neutrophils # (Manual) (1.3-7.7) k/uL Lymphocytes # (Manual) (1.0-4.8) k/uL PT (9.0-12.0) sec INR (<1.2) APTT (22.0-30.0) sec Sodium (137-145) mmol/L Potassium (3.5-5.1) mmol/L Carbon Dioxide (22-30) mmol/L BUN (9-20) mg/dL Creatinine (0.66-1.25) mg/dL Glucose (74-99) mg/dL POC Glucose (mg/dL) 45 L 45 L 52 L (75-99) mg/dL Plasma Lactic Acid Harshad (0.7-2.0) mmol/L Phosphorus (2.5-4.5) mg/dL Total Bilirubin (0.2-1.3) mg/dL AST (17-59) U/L ALT (21-72) U/L Alkaline Phosphatase (38-126) U/L Ammonia (<30) umol/L Albumin (3.5-5.0) g/dL Amylase (30-110) U/L Lipase (23-300) U/L Assessment and Plan (1) Hepatocellular carcinoma Status: Acute (2) Jaundice Status: Acute (3) Elevated serum creatinine Status: Acute (4) Coagulopathy Status: Acute (5) Hepatic encephalopathy Status: Acute (6) Ascites of liver Status: Acute Plan: 1. Family requesting [facility]. Continue supportive measures. Thank you for this kind referral and the opportunity to participate in the care of your patient. This consultation was discussed with Dr. France. The impression and plan of care have been directed as dictated.
--- NOTE | 2017-02-22 10:27 | P.HPIM ---
History of Present Illness 71-year-old gentleman was came in to ER with generalized weakness cancer cachexia and the jaundice, acute renal failure patient was admitted and gastroenterology, pulmonology and oncology were consulted. Earlier today morning family decided on hospice. Patient was diagnosed with erythematous alert carcinoma in [facility] not a candidate for liver transplant and patient declined any further chemotherapy, the only option we're left with his comfort care. Patient is sleepy arousable and patient is on comfort medications including scopolamine, Ativan and the Dilaudid for pain and patient will be started on morphine drip, hospice was consulted history at this time is irrelevant. 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 Liver failure, Liver cancer, jaundice History of Any Multi-Drug Resistant Organisms: None Reported Additional Past Surgical History / Comment(s): melanoma left shoulder, EGD with bx, colonoscopy. Liver biopsy, paracentesis 02/01/17 Past Anesthesia/Blood Transfusion Reactions: No Reported Reaction Smoking Status: Former smoker - Past Family History Father Family Medical History: Cancer Additional Family Medical History / Comment(s): Father of lung cancer at the age of 68yrs. Mother Family Medical History: No Reported History Additional Family Medical History / Comment(s): Mother was healthy and lived to be 88yrs old. Medications and Allergies Home Medications Medication Instructions Recorded Confirmed Type Aspirin 81 mg PO DAILY 01/30/17 02/21/17 History Glimepiride [Amaryl] 4 mg PO AC-BRKFST 01/30/17 02/21/17 History Losartan Potassium [Cozaar] 50 mg PO DAILY 01/30/17 02/21/17 History Tamsulosin HCl [Flomax] 0.4 mg PO BID 01/30/17 02/21/17 History metFORMIN HCL [Glucophage] 1,000 mg PO BID 01/30/17 02/21/17 History Omeprazole 20 mg PO AC-BID 02/09/17 02/21/17 History Spironolactone [Aldactone] 25 mg PO DAILY 02/12/17 02/21/17 History Allergies Allergy/AdvReac Type Severity Reaction Status Date / Time No Known Allergies Allergy Verified 02/21/17 12:46 Physical Exam Vitals: Vital Signs Temp Pulse Resp BP Pulse Ox 02/22/17 00:00 18 02/21/17 16:00 18 02/21/17 15:13 71 18 105/51 97 02/21/17 15:09 97.0 F L 711 H 8 L 82/43 99 02/21/17 13:17 97.0 F L 02/21/17 13:07 71 20 104/71 97 02/21/17 11:49 96.9 F L 70 18 99/51 99 Intake and Output 02/21/17 02/22/17 02/22/17 22:59 06:59 14:59 Intake Total 150 250 Balance 150 250 Intake: Intake, IV Titration 150 250 Amount Dextrose 5%-0.45% NaCl 1, 150 250 000 ml @ 50 mls/hr IV . Q20H ONE Rx#:[id number] Other: Voiding Method Toilet Toilet # Voids 3 3 # Bowel Movements 3 2 Weight 97.522 kg Patient is lying comfortably on the bed respiratory rate is down. PHYSICAL EXAMINATION: GENERAL: The patient is lying comfortably arousable with painful sternal I area did HEENT: Pupils constricted secondary to opiate analgesia CARDIOVASCULAR: S1 and S2 present. No murmurs, rubs, or gallops. PULMONARY: Decreased air entry into bilateral lung mauro ABDOMEN: Soft, nontender, nondistended, normoactive bowel sounds. No palpable organomegaly. MUSCULOSKELETAL: No joint swelling or deformity. EXTREMITIES: No cyanosis, clubbing, or pedal edema. NEUROLOGICAL: Neuro exam was not done because of his condition SKIN: No rashes. Results CBC & Chem 7: 02/21/17 12:30 02/21/17 13:28 Labs: Abnormal Lab Results - Last 24 Hours (Table) 02/21/17 02/21/17 02/21/17 Range/Units 12:30 12:30 12:30 RDW 16.7 H (11.5-15.5) % Neutrophils # (Manual) 8.90 H (1.3-7.7) k/uL Lymphocytes # (Manual) 0.40 L (1.0-4.8) k/uL PT 18.8 H (9.0-12.0) sec INR 2.0 H (<1.2) APTT 33.1 H (22.0-30.0) sec Sodium 136 L (137-145) mmol/L Potassium 6.6 H* (3.5-5.1) mmol/L Carbon Dioxide 7 L* (22-30) mmol/L BUN 68 H (9-20) mg/dL Creatinine 6.15 H* (0.66-1.25) mg/dL Glucose 67 L (74-99) mg/dL POC Glucose (mg/dL) (75-99) mg/dL Plasma Lactic Acid Harshad (0.7-2.0) mmol/L Phosphorus 9.1 H* (2.5-4.5) mg/dL Total Bilirubin 21.3 H* (0.2-1.3) mg/dL AST 410 H (17-59) U/L ALT 211 H (21-72) U/L Alkaline Phosphatase 380 H (38-126) U/L Ammonia (<30) umol/L Albumin 3.4 L (3.5-5.0) g/dL Amylase 269 H (30-110) U/L Lipase 1071 H (23-300) U/L 02/21/17 02/21/17 02/21/17 Range/Units 13:28 13:28 17:25 RDW (11.5-15.5) % Neutrophils # (Manual) (1.3-7.7) k/uL Lymphocytes # (Manual) (1.0-4.8) k/uL PT (9.0-12.0) sec INR (<1.2) APTT (22.0-30.0) sec Sodium (137-145) mmol/L Potassium 7.1 H* (3.5-5.1) mmol/L Carbon Dioxide (22-30) mmol/L BUN (9-20) mg/dL Creatinine (0.66-1.25) mg/dL Glucose (74-99) mg/dL POC Glucose (mg/dL) (75-99) mg/dL Plasma Lactic Acid Harshad 11.6 H* 11.5 H* (0.7-2.0) mmol/L Phosphorus (2.5-4.5) mg/dL Total Bilirubin (0.2-1.3) mg/dL AST (17-59) U/L ALT (21-72) U/L Alkaline Phosphatase (38-126) U/L Ammonia 130 H (<30) umol/L Albumin (3.5-5.0) g/dL Amylase (30-110) U/L Lipase (23-300) U/L 02/21/17 02/21/17 02/21/17 Range/Units 18:01 18:20 18:56 RDW (11.5-15.5) % Neutrophils # (Manual) (1.3-7.7) k/uL Lymphocytes # (Manual) (1.0-4.8) k/uL PT (9.0-12.0) sec INR (<1.2) APTT (22.0-30.0) sec Sodium (137-145) mmol/L Potassium (3.5-5.1) mmol/L Carbon Dioxide (22-30) mmol/L BUN (9-20) mg/dL Creatinine (0.66-1.25) mg/dL Glucose (74-99) mg/dL POC Glucose (mg/dL) 45 L 45 L 52 L (75-99) mg/dL Plasma Lactic Acid Harshad (0.7-2.0) mmol/L Phosphorus (2.5-4.5) mg/dL Total Bilirubin (0.2-1.3) mg/dL AST (17-59) U/L ALT (21-72) U/L Alkaline Phosphatase (38-126) U/L Ammonia (<30) umol/L Albumin (3.5-5.0) g/dL Amylase (30-110) U/L Lipase (23-300) U/L Thrombosis Risk Factor Assmnt - Choose All That Apply Each Factor Represents 1 point: Obesity (BMI >25) Other Risk Factors: Yes Each Risk Factor Represents 2 Points: Age 61-74 years, Malignancy Other congenital or acquired thrombophilia - If yes, enter type in comment: No Thrombosis Risk Factor Assessment Total Risk Factor Score: 5 Thrombosis Risk Factor Assessment Level: High Risk Assessment and Plan Plan: #1 generalized weakness: Secondary to cancer See a and advancing hepatocellular #2 obstructive jaundice secondary to hepatocellular carcinoma #3 type 2 diabetes mellitus #4 hyperlipidemia #5 hypertension #6 benign prostatic hypertrophy Plan All his medications were discontinued except for comfort medications including IV morphine drip, scopolamine patch comfort measures palliative care will be consulted, consulted nephrology and oncology will be discontinued. Patient wishes to be comfortable no further treatment.
[2017-02-22] MEDS ORDERED: MORPHINE SULFATE (100 MG/2 ML) 100 MG in SODIUM CHLORIDE 0.9% 100 ML IV SCH (11:00)
[2017-02-22 14:10] VITALS: BMI 31.7
--- NOTE | 2017-02-23 13:57 | P.DS ---
Providers Date of admission: 02/21/17 14:54 Attending physician: Zan Mai Consults: 02/21/17 16:32 Consult Physician Urgent Consulting Provider: Desiree France Consult Reason/Comments: Liver CA / Nausea, vomiting Do you want consulting provider notified?: Yes Primary care physician: Zan Mai Hospital Course: Patient was admitted for generalized weakness, acute renal failure. Patient had hepatocellular carcinoma. Patient opted out of treatment and the patient was made hospice. Patient earlier today morning please refer to nursing documentation for further details Primary cause of is hepatocellular carcinoma. Patient Condition at Discharge: Critical Plan - Discharge Summary New Discharge Prescriptions: No Action Glimepiride [Amaryl] 4 mg PO AC-BRKFST metFORMIN HCL [Glucophage] 1,000 mg PO BID Losartan Potassium [Cozaar] 50 mg PO DAILY Aspirin 81 mg PO DAILY Tamsulosin HCl [Flomax] 0.4 mg PO BID Omeprazole 20 mg PO AC-BID Spironolactone [Aldactone] 25 mg PO DAILY Discharge Medication List Aspirin 81 mg PO DAILY 01/30/17 [History] Glimepiride [Amaryl] 4 mg PO AC-BRKFST 01/30/17 [History] Losartan Potassium [Cozaar] 50 mg PO DAILY 01/30/17 [History] Tamsulosin HCl [Flomax] 0.4 mg PO BID 01/30/17 [History] metFORMIN HCL [Glucophage] 1,000 mg PO BID 01/30/17 [History] Omeprazole 20 mg PO AC-BID 02/09/17 [History] Spironolactone [Aldactone] 25 mg PO DAILY 02/12/17 [History] Follow up Appointment(s)/Referral(s): Zan Mai DO [Primary Care Provider] - 1-2 days Discharge Disposition: HOME SELF-CARE
== END 2017-02-22 15:13 | disposition hospice, inpatient (51) | DRG 435 ==
LOC: EC 11:40 → 5ONC 14:54
PROVIDERS: ADMIT Family Medicine; ATTEND Family Medicine
DX: C22.0 Liver cell carcinoma (principal); K72.01 Acute and subacute hepatic failure with coma; K83.1 Obstruction of bile duct; N17.9 Acute kidney failure, unspecified; R64 Cachexia; D68.9 Coagulation defect, unspecified; R18.8 Other ascites; E87.5 Hyperkalemia; E86.0 Dehydration; E11.9 Type 2 diabetes mellitus without complications; E78.5 Hyperlipidemia, unspecified; I10 Essential (primary) hypertension; K21.9 Gastro-esophageal reflux disease without esophagitis; N40.0 Benign prostatic hyperplasia without lower urinary tract symptoms; K42.9 Umbilical hernia without obstruction or gangrene; R01.1 Cardiac murmur, unspecified; K72.90 Hepatic failure, unspecified without coma; Z51.5 Encounter for palliative care; Z79.82 Long term (current) use of aspirin; Z79.84 Long term (current) use of oral hypoglycemic drugs; Z79.899 Other long term (current) drug therapy; Z85.820 Personal history of malignant melanoma of skin; Z87.891 Personal history of nicotine dependence; Z80.1 Family history of malignant neoplasm of trachea, bronchus and lung
CPT/HCPCS: 36415; 71020; 74020; 80053; 82140; 82150; 82550; 82553; 83605; 83690; 83735; 84100; 84132; 84484; 85025; 85610; 85730; 86850; 86900; 86901; 93005; 96361; 96365; 96375; 99285

== ENCOUNTER 2017-02-22 15:15 | Inpatient (IN) | payer MEDICAID ==
[2017-02-22] MEDS ORDERED: LORazepam 2 MG/ML INJ IV PRN (15:38)
[2017-02-22] MEDS ORDERED: ATROPINE OPHTH SOLN 1% 5ML BTL SUBLINGUAL PRN (15:40)
[2017-02-22] MEDS ORDERED: ONDANSETRON 4 MG/2 ML VIAL IVP PRN (15:41)
[2017-02-22] MEDS ORDERED: BISACODYL 10 MG SUPP RECTAL PRN (15:42)
[2017-02-22] MEDS ORDERED: ACETAMINOPHEN SUPPOSITORY 650 MG SUPP RECTAL PRN (15:44)
[2017-02-22] MEDS ORDERED: MORPHINE SULFATE (100 MG/2 ML) 100 MG in SODIUM CHLORIDE 0.9% 100 ML IV SCH (15:45)
[2017-02-22] MEDS ORDERED: SCOPOLAMINE 1.5MG/72HR PATCH TRANSDERM SCH (15:45)
[2017-02-22 15:55] VITALS: BMI 31.7
--- NOTE | 2017-02-27 14:42 | CDI ---
In responding to this query, please exercise your independent professional judgment. The [facility] Coding Staff and Clinical Documentation Specialists appreciate your assistance in clarifying documentation, maintaining compliance with coding guidelines, accurately documenting patients condition and capturing severity of illness. The fact that a question is asked does not imply that any particular answer is desired or expected. Communication forms are a method of clarifying documentation and are not made part of the Legal Health Record. Thank you in advance for your clarification. Last Revision, April [address] [facility] [place] [address] Documentation Clarification Form Date: 02/27/2017 2:36:00 PM From: Tomeka Flower [facility] Admit Date: 02/22/2017 3:15:00 PM Patient Name: Homer Rogel Visit Number: [id number] Date: 02-23-17 Dr. Ozzy Bob: Preliminary Cause of is needed. Please document in your discharge summary in order to capture severity of illness and risk of mortality. Include clinical findings that support your diagnosis. If you have a question about this query, please contact Rosalinda Morales, Website Designer at [phone] FYI: Press F11 to launch patient chart. MOLLY
--- NOTE | 2017-03-03 19:55 | CDI ---
In responding to this query, please exercise your independent professional judgment. The [facility] Coding Staff and Clinical Documentation Specialists appreciate your assistance in clarifying documentation, maintaining compliance with coding guidelines, accurately documenting patients condition and capturing severity of illness. The fact that a question is asked does not imply that any particular answer is desired or expected. Communication forms are a method of clarifying documentation and are not made part of the Legal Health Record. Thank you in advance for your clarification. Last Revision, April 2015 Juan Rosario [address] [facility] [place] [address] Documentation Clarification Form Date: 02/27/2017 2:36:00 PM From: Tomeka Flower [facility] Admit Date: 02/22/2017 3:15:00 PM Patient Name: Homer Rogel Visit Number: [id number] Date: 02-23-17 Dr. Ozzy Bob: Preliminary Cause of is needed. Please document in your discharge summary in order to capture severity of illness and risk of mortality. Include clinical findings that support your diagnosis. If you have a question about this query, please contact Rosalinda Morales, Electromyographic Technician at [phone] FYI: Press F11 to launch patient chart. Already dictated MTDD
== END 2017-02-23 06:10 | disposition expired | DRG 435 ==
LOC: 5ONC 15:15
PROVIDERS: ADMIT Internal Medicine; ATTEND Internal Medicine
PROC: 0T9B70Z Drainage of Bladder with Drainage Device, Via Natural or Artificial Opening (ICD-10-PCS; principal; 2017-02-22)
DX: C22.0 Liver cell carcinoma (principal); K83.1 Obstruction of bile duct; N17.9 Acute kidney failure, unspecified; R64 Cachexia; I10 Essential (primary) hypertension; K21.9 Gastro-esophageal reflux disease without esophagitis; E11.9 Type 2 diabetes mellitus without complications; Z66 Do not resuscitate; Z51.5 Encounter for palliative care; E78.5 Hyperlipidemia, unspecified; E66.9 Obesity, unspecified; R53.1 Weakness; K42.9 Umbilical hernia without obstruction or gangrene; K64.9 Unspecified hemorrhoids; N40.0 Benign prostatic hyperplasia without lower urinary tract symptoms; Z80.1 Family history of malignant neoplasm of trachea, bronchus and lung; Z68.31 Body mass index [BMI] 31.0-31.9, adult; Z85.820 Personal history of malignant melanoma of skin; Z87.891 Personal history of nicotine dependence; Z79.84 Long term (current) use of oral hypoglycemic drugs; Z79.899 Other long term (current) drug therapy; Z79.82 Long term (current) use of aspirin; Z86.79 Personal history of other diseases of the circulatory system